=== PATIENT | male | born 1950 | race Caucasian/White ===

== ENCOUNTER → 2017-02-07 | Outpatient (CLI) | payer BC ==
--- NOTE | 2017-02-07 15:06 | DIAGNOSTIC IMAGING REPORT ---
CT SCAN OF THE PARANASAL SINUSES CLINICAL HISTORY: Chronic sinusitis. COMPARISON STUDY: No priors. TECHNIQUE: High-resolution CT scan of the paranasal sinuses is performed. Images are reviewed in the axial, sagittal, and coronal planes. IV contrast was not administered for this examination. A dose lowering technique was utilized adhering to the principles of ALARA. CT DOSE: 289.26 mGycm FINDINGS: Maxillary antra: There is complete opacification of the right maxillary antrum. Mild mucosal thickening is noted on the left. Anterior ethmoid sinuses: Moderate mucosal thickening is seen on the left. Mild on the right. Posterior ethmoid sinuses: Mild mucosal thickening seen bilaterally, right greater than left. Sphenoid sinuses: Clear. Frontal sinuses: Trace mucosal thickening is seen on the left. Clear on the right. Ostiomeatal complexes: Occluded on the right. Significantly narrowed on the left by mucosal thickening. Frontoethmoidal and sphenoethmoidal recesses: The frontoethmoidal recesses are patent, noting significant narrowing on the left secondary to mucosal thickening. The sphenoethmoidal recesses are nearly occluded. Carotid arteries: The carotid arteries are covered and without septal attachments. Ethmoid roofs: There is slightly asymmetric elevation of the right ethmoid roof as compared to the left. Nasal turbinates: Normal in appearance. Nasal septum: There is leftward deviation of the bony nasal septum. Optic nerves: Covered. Orbits: The bony orbits are intact. Orbital contents are normal in appearance. Calvarium: The skeletal structures are osteopenic. The imaged calvarium is normal in appearance Mastoid air cells: Well pneumatized. Dentition: A large periapical lucency is seen around the most posterior right maxillary molar. Brain parenchyma: Partially visualized brain parenchyma is within normal limits. IMPRESSION: Paranasal sinus disease as above. Electronically signed by: Jhon Heredia M.D. 02/07/2017 3:04 PM Dictated Date/Time: 02/07/2017 2:52 PM
== END | disposition home or self-care (01) ==
LOC: C.CTS 14:35
PROVIDERS: ATTEND Otolaryngology
DX: J32.4 Chronic pansinusitis (principal); J34.2 Deviated nasal septum